=== PATIENT | female | born 1950 | race Caucasian/White ===

== ENCOUNTER 2018-06-10 16:06 | Inpatient (IN) ==
[2018-06-10] MEDS ORDERED: Metoclopramide Inj 10 MG in Sodium Chlor 0.9% Inj 50 ML IV.SIG ONE (16:52)
--- NOTE | 2018-06-10 16:54 | ED ---
HPI General Chief complaint: Headache Stated complaint: Neuro Time Seen by Provider: 06/10/18 16:40 Source: patient Mode of arrival: ambulatory Limitations: no limitations History of Present Illness HPI narrative: 68yo F with PMH of HTN, TIA here with c/o frontal headache that has been there for about 5 days but said it felt worst today. Headache was gradual onset and associated with nausea. Said she gets frequent headaches and this feels like her usual headaches but more severe. Pt also said that last night she had difficulty articulating words that she was thinking and some slurred speech. Said she woke up this morning and still had some slurred speech and some difficulty articulating words but it resolved by around 9am. Said she is back to her baseline speech and has no difficulty stating her words now. Denies any trauma, fever, neck pain, visual changes, chest pain, sob, vomiting, abdominal pain, focal weakness or numbness. Related Data Home Medications Medication Instructions Recorded Confirmed amlodipine 10 mg PO DAILY 06/10/18 06/10/18 Allergies Allergy/AdvReac Type Severity Reaction Status Date / Time No Known Allergies Allergy Verified 06/10/18 16:28 Review of Systems ROS: all other systems reviewed are negative [facility] Medical History Medical History HTN (hypertension) (Acute) Surgical History Surgical History H/O section (Acute) S/P appy (Acute) Social History Social History Substance History: No History of Abuse Second Hand Smoke Exposure: No Smoking Status: Never smoker How Often Do You Have a Drink Containing Alcohol: Never Recent Travel in [facility] within the Last 8 Weeks: No Recent Out of Country Travel within the Last 8 Weeks: No Immunization History Tetanus Immunization: <5 Years Exam Narrative Exam Narrative: GENERAL: 68yo F in mild distress. SKIN: Focused skin assessment warm/dry. HEAD: Atraumatic. Normocephalic. EYES: Pupils equal and round at 3mm bilaterally. EOMI. ENT: No nasal bleeding or discharge. Mucous membranes pink and moist. NECK: No nuchal rigidity. CARDIOVASCULAR: Regular rate and rhythm. No murmur appreciated. RESPIRATORY: No accessory muscle use. Clear to auscultation. Breath sounds equal bilaterally. GASTROINTESTINAL: Abdomen soft, non-tender, nondistended. MUSCULOSKELETAL: No obvious deformities. No clubbing. No cyanosis. No edema. NEUROLOGICAL: Awake and alert. No obvious cranial nerve deficits. Motor grossly within normal limits in all extremities. Sensation intact. Normal speech. NIH stroke scale 0. PSYCHIATRIC: Appropriate mood and affect; insight and judgment normal. Course Initial Documented Vital Signs Temperature 98.5 F 06/10/18 16:12 Pulse Rate 105 H 06/10/18 16:12 Respiratory Rate 20 06/10/18 16:12 Blood Pressure 166/86 H 06/10/18 16:12 Pulse Oximetry 96 06/10/18 16:12 Last Documented Vital Signs Temperature 98.3 F 06/10/18 19:56 Pulse Rate 82 06/10/18 19:56 Respiratory Rate 16 06/10/18 19:56 Blood Pressure 165/80 H 06/10/18 19:56 Pulse Oximetry 96 06/10/18 18:06 Medical Decision Making MDM Narrative Medical decision making narrative: 68yo F with c/o headache for a few days. However, pt states she had difficulty stating his words and slurred speech last night. Said it resolved this morning around 9am. NIH stroke scale 0 now. Pt could have had a complex migraine but cannot rule out TIA in the ED. Labs reviewed, no leukocytosis. H/H normal. BUN mildly elevated at 21. Pt given NS IVF. Pt given reglan and said headache and nausea had improved. CT brain showed no hemorrhage or acute infarction. There is benign expansile lesion in left occipital and temporal bones. Brain MRI on an outpatient basis would be helpful to evaluate the diploic space. Pt will be admitted for observation for possible TIA so will be getting an MRI brain. Pt given aspirin. Discussed with Dr. Morse and accepted to her service. Medical Screen Exam Complete: Yes Emergency Medical Condition: Yes Differential Diagnosis Differential Diagnosis: Migraine headache vs. complex migraine vs. TIA Lab Data Result diagrams: 06/10/18 16:55 06/10/18 16:55 Lab Results 06/10/18 06/10/18 06/10/18 Range/Units 16:55 16:55 16:55 CBC w Diff Auto diff final WBC 7.9 (4.0-11.0) th/mm3 RBC 4.70 (4.00-5.30) mil/mm3 Hgb 14.1 (11.6-15.3) gm/dL Hct 41.7 (35.0-46.0) % MCV 88.7 (80.0-100.0) fL MCH 30.1 (27.0-34.0) pg MCHC 33.9 (32.0-36.0) % RDW 13.6 (11.6-17.2) % Plt Count 299 (150-450) th/mm3 MPV 9.4 (7.0-11.0) fL Neut % (Auto) 72.7 H (16.0-70.0) % Lymph % (Auto) 18.0 (9.0-44.0) % [place] % (Auto) 7.2 (0.0-8.0) % Eos % (Auto) 1.3 (0.0-4.0) % Baso % (Auto) 0.8 (0.0-2.0) % Neut # (Auto) 5.7 (1.8-7.7) th/mm3 Lymph # (Auto) 1.4 (1.0-4.8) th/mm3 [place] # (Auto) 0.6 (0.0-0.9) th/mm3 Eos # (Auto) 0.1 (0.0-0.4) th/mm3 Baso # (Auto) 0.1 (0.0-0.2) th/mm3 WBC Differential . Differential Comment . PT 10.4 (9.8-11.6) sec INR 1.0 Ratio APTT 25.0 (24.3-30.1) sec Sodium 139 (136-145) meq/L Potassium 3.9 (3.5-5.1) meq/L Chloride 106 (98-107) meq/L Carbon Dioxide 29.2 (21.0-32.0) meq/L Anion Gap 4 L (5-15) meq/L BUN 21 H (7-18) mg/dL Creatinine 0.97 (0.50-1.00) mg/dL Estimated GFR 57 L (>89) mL/min Random Glucose 176 H (74-106) mg/dL Calcium 8.4 L (8.5-10.1) mg/dL Imaging Data Radiologist's impression: Head CT 06/10/18 16:52 CONCLUSION: 1. Benign expansile lesion involving the left occipital and left temporal bones. Brain MRI on an outpatient basis would be helpful to evaluate the diploic space. The intracranial exam itself is unremarkable . Discharge Plan Discharge Disposition Patient Disposition: 30 Still Patient Discharge Details Diagnosis: TIA (transient ischemic attack) Physicians Team ED Provider: Digna Bangura Primary Care Provider: UNKNOWN, Attending Provider: Jeny Morse Status ED Status: Left Department Discharge Information Discharge Date/Time: 06/10/18 19:57
[2018-06-10 17:00] LABS: Baso # (Auto) 0.1 th/mm3 (0.0-0.2); Baso % (Auto) 0.8 % (0.0-2.0); Eos # (Auto) 0.1 th/mm3 (0.0-0.4); Eos % (Auto) 1.3 % (0.0-4.0); Hematocrit 41.7 % (35.0-46.0); Hemoglobin 14.1 gm/dL (11.6-15.3); Lymph # (Auto) 1.4 th/mm3 (1.0-4.8); Mean Corpuscular HGB Conc 33.9 % (32.0-36.0); Mean Corpuscular Hemoglobin 30.1 pg (27.0-34.0); Mean Corpuscular Volume 88.7 fL (80.0-100.0); Mean Platelet Volume 9.4 fL (7.0-11.0); Mono # (Auto) 0.6 th/mm3 (0.0-0.9); Mono % (Auto) 7.2 % (0.0-8.0); Neut # (Auto) 5.7 th/mm3 (1.8-7.7); Neut % (Auto) 72.7 % (16.0-70.0); Platelet Count 299 th/mm3 (150-450); Red Cell Distribution Width 13.6 % (11.6-17.2); White Blood Count 7.9 th/mm3 (4.0-11.0)
[2018-06-10 17:14] LABS: Potassium 3.9 meq/L (3.5-5.1)
[2018-06-10 17:16] LABS: Calcium 8.4 mg/dL (8.5-10.1)
[2018-06-10 17:17] LABS: Carbon Dioxide 29.2 meq/L (21.0-32.0)
[2018-06-10 17:37] LABS: Prothrombin Time 10.4 sec (9.8-11.6)
--- NOTE | 2018-06-10 17:37 | CT ---
EXAM DATE: 06/10/2018 5:22 PM EDT AGE/SEX: 68 years / Female INDICATIONS: Headache and hypertension. Difficulty speaking yesterday. CLINICAL DATA: This is the patient's initial encounter. Patient reports that signs and symptoms have been present for 2 days and indicates a pain score of 0/10. MEDICAL/SURGICAL HISTORY: Hypertension. section. Appendectomy. RADIATION DOSE: 58.57 CTDI (mGy) COMPARISON: No prior exams available for comparison. TECHNIQUE: CT of the head without contrast. Using automated exposure control and adjustment of the mA and/or kV according to patient size, radiation dose was kept as low as reasonably achievable to ob tain optimal diagnostic quality images. DICOM format image data is available electronically for revi ew and comparison. FINDINGS: Cerebrum: The ventricles are normal for age. No evidence of midline shift, mass lesion, hemorrhage or acute infarction. No extraaxial fluid collections are seen. Posterior Fossa: The cerebellum and brainstem are intact. The 4th ventricle is midline. The cerebe llopontine angle is unremarkable. Extracranial: The visualized portion of the orbits is intact. Skull: There is a large mixed density lesion within the left occiput extending into the temporal bon e. The bone is expanded with some areas of ossification. It is a solitary abnormality. It is slow-fadumo wing process with expansion of the diploic space measuring up to 2.4 cm across, the contralateral mitul e is 0.5 cm No evidence of skull fracture. CONCLUSION: 1. Benign expansile lesion involving the left occipital and left temporal bones. Brain MRI on an out patient basis would be helpful to evaluate the diploic space. The intracranial exam itself is unremar kable . Electronically signed by: Lamont Levin MD 06/10/2018 5:36 PM EDT
[2018-06-10] MEDS ORDERED: Aspirin 325 MG Tablet PO ONE (17:53)
[2018-06-10] MEDS ORDERED: Sodium Chlor 0.9% Inj 500 ML IV.SIG SCH (18:00)
[2018-06-10] MEDS ORDERED: Insulin NovoLOG Aspart Correctional Sugar Inj SQ PRN (18:29)
[2018-06-10] MEDS ORDERED: Dextrose 50% in Water 50 ML Vial IV.PUSH PRN (18:29)
[2018-06-10] MEDS: Sod Chloride 0.9% Inj 1,000 ML IV.CONT SCH (18:55)
[2018-06-10] MEDS: Acetaminophen 325 MG Tablet PO PRN (22:05)
[2018-06-11] MEDS ORDERED: amLODIPine 10 MG Tablet PO SCH (09:00)
[2018-06-11] MEDS ORDERED: Gadobutrol PF 10 MMOL/10 ML Vial (for RAD) IV.SIG ONE (09:00)
[2018-06-11] MEDS: Sod Chloride 0.9% Inj 1,000 ML IV.CONT SCH (09:10)
--- NOTE | 2018-06-11 09:32 | MR ---
EXAM DATE: 06/11/2018 8:59 AM EDT AGE/SEX: 68 years / Female INDICATIONS: TIA. Lesion on skull, headaches for a few weeks. CLINICAL DATA: This is the patient's initial encounter. Patient reports that signs and symptoms have been present for 2 weeks and indicates a pain score of 8/10. MEDICAL/SURGICAL HISTORY: Hypertension. section. Appendectomy. Tonsillectomy. COMPARISON: [facility], MR HEAD W & W/O CONTRAST, 06/11/2018. . TECHNIQUE: 3D [id number] MRA was performed. Source images, multiplanar STS MIP, and 3D volum e MIP reconstructions were reviewed. FINDINGS: There is excellent visualization of the major intracranial arteries out to the second-order branch ve ssels. There is no evidence for aneurysm, vessel truncation or stenosis, and no evidence for vascula r malformation. CONCLUSION: 1. Negative MRA Cow ([place]) non contrast. Electronically signed by: Sarthak Burch MD 06/11/2018 9:31 AM EDT
[2018-06-11 09:46] VITALS: RESP 20
--- NOTE | 2018-06-11 09:49 | MR ---
EXAM DATE: 06/11/2018 8:54 AM EDT AGE/SEX: 68 years / Female INDICATIONS: TIA. Patient prior to headaches and difficulty speaking. Patient has hypertension. A bnormal head CT with expansile lesion on skull, headaches for a few weeks in frontal left side of hea d. CLINICAL DATA: This is the patient's initial encounter. Patient reports that signs and symptoms have been present for 2 weeks and indicates a pain score of 9/10. MEDICAL/SURGICAL HISTORY: Hypertension. section. Appendectomy. Tonsillectomy. COMPARISON: [facility], CT HEAD W/O CONTRAST, 06/10/2018. . TECHNIQUE: Multiplanar, multisequence examination of the brain was performed without and with 9 ml Ga davist (gadobutrol) contrast as a single exam dose. FINDINGS: Cerebrum: The ventricles are normal for age. No evidence of midline shift, mass lesion, hemorrhage or acute infarction. No extraaxial fluid collections are seen. The pituitary gland and suprasellar cistern are normal in configuration. White Matter: No significant signal abnormalities are seen in the white matter. Posterior Fossa: The cerebellum and brainstem are intact. The 4th ventricle is midline. The cerebel lopontine angle is unremarkable. The cerebellar tonsils are normal in position. Diffusion Imaging: On the echoplanar images there is a single tiny focus of restricted diffusion in the left parietal lobe. Extracranial: The visualized portions of the orbits and paranasal sinuses are unremarkable. Is an ex pansile lesion again noted involving the left occipital and temporal bones with patchy internal signa l. There are patchy areas of enhancement after gadolinium administration. There is no extraosseous so ft tissue component. Post Contrast: No abnormal areas of parenchymal or dural enhancement. No evidence of blood-brain ba rrier breakdown. CONCLUSION: 1. Single small focus of restricted diffusion in the left parietal lobe consistent with an acute to subacute small lacunar type infarct. 2. Expansile lesion again noted involving the left occipital and temporal bones with patchy internal signal and enhancement. The finding is nonspecific. The differential diagnosis includes Paget's dise ase and fibrous dysplasia. Electronically signed by: Hesham Caballero MD 06/11/2018 9:47 AM EDT
[2018-06-11] MEDS ORDERED: Dextrose 50% in Water 50 ML Vial IV.PUSH PRN (10:07)
--- NOTE | 2018-06-11 10:16 | P.HP ---
History of Present Illness Primary Care Physician: UNKNOWN Chief Complaint: Headache History of Present Illness: This is a 68-year-old female with a history of hypertension and TIA. She presents to the emergency department because of headache. She describes a constant throbbing left-sided headache for the past 7-10 days temporarily relieved with ibuprofen. The night prior to presentation, she complained of difficulty articulating words but no slurred speech, fever, chills, dizziness, swallowing difficulties, numbness and focal weakness. Today she feels much better and wants to go home however MRI shows left parietal lobe acute to subacute small lacunar infarct. Patient has been started on aspirin. All other systems reviewed negative Review of Systems All other systems reviewed negative except as stated in HPI PMFSH - History History Provided By: Patient - Medical History Medical History: Medical History (Last Reviewed 06/11/18 @ 10:11 by Boy Clark MD) HTN (hypertension) - Surgical History Surgical History: Surgical History (Last Reviewed 06/11/18 @ 10:11 by Boy Clark MD) H/O section S/P appy - Family History Family History: Family History (Last Updated 06/11/18 @ 10:11 by Boy Clark MD) Other Family history non-contributory - Social History I have reviewed the patient's Social History: Yes - Tobacco History Second Hand Smoke Exposure: No Smoking Status: Never smoker - Alcohol History How Often Do You Have a Drink Containing Alcohol: Never - Substance Use History Substance History: No History of Abuse - Travel History Recent Travel in the [place] Within the Last 8 Weeks: No Recent Travel Out of the Country Within the Last 8 Weeks: No - Immunization History Tetanus Immunization: <5 Years Medications and Allergies Active Medications: Active Medications Acetaminophen (Tylenol) 650 mg PO Q4H PRN PRN Reason: HEADACHE OR TEMP > 101 F Last Admin: 06/10/18 22:05 Dose: 650 mg Amlodipine Besylate (Norvasc) 10 mg PO DAILY [facility] Last Admin: 06/11/18 09:10 Dose: 10 mg Aspirin (Aspirin Chew) 81 mg PO DAILY [facility] Last Admin: 06/11/18 09:10 Dose: 81 mg Dextrose (D50w Vial) 50 ml IV.PUSH UNSCH PRN PRN Reason: per Hypoglycemic Protocol Dextrose (D50w Vial) 50 ml IV.PUSH UNSCH PRN PRN Reason: PER HYPOGLYCEMIA PROTOCOL Enalaprilat (Vasotec Inj) 1.25 mg IV.PUSH Q4H PRN PRN Reason: For SBP > 220 or DBP > 120 Glucagon (Glucagon Inj) 1 mg OTHER UNSCH PRN PRN Reason: per Hypoglycemic Protocol Glucagon (Glucagon Inj) 1 mg OTHER UNSCH PRN PRN Reason: for Hypoglycemia Protocol Sodium Chloride (Ns Inj) 500 mls @ 0 mls/hr IV.SIG BOLUS BANDAR Last Infusion: 06/10/18 18:54 Dose: Infused Sodium Chloride (Ns Inj) 1,000 mls @ 70 mls/hr IV.CONT .[id number] BANDAR Last Admin: 06/11/18 09:10 Dose: Not Given Insulin Aspart (Novolog Insulin [place] Sugar Inj) 0 unit SQ ACHS PRN; Protocol PRN Reason: Per Protocol Sodium Chloride (Ns Flush) 2 ml IV.FLUSH BID BANDAR Sodium Chloride (Ns Flush) 2 ml IV.FLUSH PRN PRN PRN Reason: FLUSH AFTER USING IV ACCESS Allergies Allergy/AdvReac Type Severity Reaction Status Date / Time No Known Allergies Allergy Verified 06/10/18 16:28 Home Medications Medication Instructions Recorded Confirmed Type amlodipine 10 mg PO DAILY 06/10/18 06/10/18 History Exam Vital signs: Vital Signs 06/10/18 16:12 06/10/18 16:27 06/10/18 17:08 Temperature 98.5 F Pulse Rate 105 H 96 H 90 Respiratory Rate 20 16 16 Blood Pressure 166/86 H 163/78 H 143/80 H Pulse Oximetry 96 97 97 06/10/18 18:06 06/10/18 19:56 06/10/18 20:00 Temperature 98.3 F 98.9 F Pulse Rate 88 82 89 Respiratory Rate 16 16 18 Blood Pressure 169/84 H 165/80 H 171/89 H Pulse Oximetry 96 97 06/10/18 20:45 06/10/18 22:00 06/11/18 00:00 Temperature 97.5 F L Pulse Rate 87 89 62 Respiratory Rate 18 Blood Pressure 153/79 H Pulse Oximetry 96 06/11/18 04:00 06/11/18 08:00 Temperature 97.2 F L 97 F L Pulse Rate 76 78 Respiratory Rate 18 20 Blood Pressure 130/88 171/87 H Pulse Oximetry 97 96 Intake & Output 06/10/18 06/11/1806/11/18 18:59 06:59 18:59 Intake Total 552 / 552 440 / 440 Balance 552 / 552 440 / 440 Weight 95 kg 94.3 kg Intake: IV 552 / 552 Reglan Inj 10 MG In NS Inj 50 52 / 52 ML @ 104 mls/hr IV.SIG ONCE ONE Rx#:[id number] NS Inj 500 ML @ Wide Open IV. 500 / 500 SIG BOLUS BANDAR Rx#:[id number] Oral 440 / 440 Other: # Voids 2 Date of Last Bowel Movement 06/10/18 Weight On Admission 94.3 kg Narrative: GENERAL: Well-developed, well-nourished in no distress SKIN: Warm and dry. HEAD: Atraumatic. Normocephalic. EYES: Pupils equal and round. No scleral icterus. No injection or drainage. ENT: No nasal bleeding or discharge. Mucous membranes pink and moist. NECK: Trachea midline. No JVD. CARDIOVASCULAR: Regular rate and rhythm. RESPIRATORY: No accessory muscle use. Clear to auscultation. Breath sounds equal bilaterally. GASTROINTESTINAL: Abdomen soft, non-tender, nondistended. MUSCULOSKELETAL: Extremities without clubbing, cyanosis, or edema. No obvious deformities. NEUROLOGICAL: Awake and alert. No obvious cranial nerve deficits. Motor grossly within normal limits. Five out of 5 muscle strength in the arms and legs. Normal speech. PSYCHIATRIC: Appropriate mood and affect; insight and judgment normal. Results - Labs CBC & Chem 7: 06/10/18 16:55 06/10/18 16:55 Labs: Laboratory Results - last 24 hr 06/10/18 06/10/18 06/10/18 16:55 16:55 16:55 CBC w Diff Auto diff final WBC 7.9 RBC 4.70 Hgb 14.1 Hct 41.7 MCV 88.7 MCH 30.1 MCHC 33.9 RDW 13.6 Plt Count 299 MPV 9.4 Neut % (Auto) 72.7 H Lymph % (Auto) 18.0 [place] % (Auto) 7.2 Eos % (Auto) 1.3 Baso % (Auto) 0.8 Neut # (Auto) 5.7 Lymph # (Auto) 1.4 [place] # (Auto) 0.6 Eos # (Auto) 0.1 Baso # (Auto) 0.1 WBC Differential . Differential Comment . PT 10.4 INR 1.0 APTT 25.0 Sodium 139 Potassium 3.9 Chloride 106 Carbon Dioxide 29.2 Anion Gap 4 L BUN 21 H Creatinine 0.97 Estimated GFR 57 L POC Glucose Random Glucose 176 H Calcium 8.4 L 06/10/18 21:15 CBC w Diff WBC RBC Hgb Hct MCV MCH MCHC RDW Plt Count MPV Neut % (Auto) Lymph % (Auto) [place] % (Auto) Eos % (Auto) Baso % (Auto) Neut # (Auto) Lymph # (Auto) [place] # (Auto) Eos # (Auto) Baso # (Auto) WBC Differential Differential Comment PT INR APTT Sodium Potassium Chloride Carbon Dioxide Anion Gap BUN Creatinine Estimated GFR POC Glucose 115 H Random Glucose Calcium - Imaging Impressions Head CT 06/10/18 16:52 CONCLUSION: 1. Benign expansile lesion involving the left occipital and left temporal bones. Brain MRI on an outpatient basis would be helpful to evaluate the diploic space. The intracranial exam itself is unremarkable . Head MRI 06/11/18 00:00 CONCLUSION: 1. Single small focus of restricted diffusion in the left parietal lobe consistent with an acute to subacute small lacunar type infarct. 2. Expansile lesion again noted involving the left occipital and temporal bones with patchy internal signal and enhancement. The finding is nonspecific. The differential diagnosis includes Paget's disease and fibrous dysplasia. Head MRA 06/11/18 07:06 CONCLUSION: 1. Negative MRA [place] ([place] [facility] [place]) non contrast. Caprini VTE Risk Assessment Caprini VTE Risk Assessment: Moderate/High Risk (score >= 2) Caprini Risk Assessment Model: Point Value = 1 Point Value = 2 Point Value = 3 Point Value = 5 Age 41-60 Minor surgery BMI > 25 kg/m2 Swollen legs Varicose veins or History of unexplained or recurrent spontaneous Oral contraceptives or hormone replacement Sepsis (< 1 month) Serious lung disease, including pneumonia (< 1 month) Abnormal pulmonary function Acute myocardial infarction Congestive heart failure (< 1 month) History of inflammatory bowel disease Medical patient at bed rest Age 61-74 Arthroscopic surgery Major open surgery (> 45 min) Laparoscopic surgery (> 45 min) Malignancy Confined to bed (> 72 hours) Immobilizing plaster cast Central venous access Age >= 75 History of VTE Family history of VTE Factor V Leiden Prothrombin [id number] Lupus anticoagulant Anticardiolipin antibodies Elevated serum homocysteine Heparin-induced thrombocytopenia Other congenital or acquired thrombophilia Stroke (< 1 month) Elective arthroplasty Hip, pelvis, or leg fracture Acute spinal cord injury (< 1 month) Prophylaxis Regimen: Total Risk Factor Score Risk Level Prophylaxis Regimen 0-1 Low Early ambulation 2 Moderate Order ONE of the following: *Sequential Compression Device (SCD) *Heparin 5000 units SQ BID 3-4 Higher Order ONE of the following medications: *Heparin 5000 units SQ TID *Enoxaparin/Lovenox 40 mg SQ daily (WT < 150 kg, CrCl > 30 mL/min) *Enoxaparin/Lovenox 30 mg SQ daily (WT < 150 kg, CrCl > 10-29 mL/min) *Enoxaparin/Lovenox 30 mg SQ BID (WT < 150 kg, CrCl > 30 mL/min) AND/OR *Sequential Compression Device (SCD) 5 or more Highest Order ONE of the following medications: *Heparin 5000 units SQ TID (Preferred with Epidurals) *Enoxaparin/Lovenox 40 mg SQ daily (WT < 150 kg, CrCl > 30 mL/min) *Enoxaparin/Lovenox 30 mg SQ daily (WT < 150 kg, CrCl > 10-29 mL/min) *Enoxaparin/Lovenox 30 mg SQ BID (WT < 150 kg, CrCl > 30 mL/min) AND *Sequential Compression Device (SCD) Assessment and Plan - Plan This is a 68-year-old female with a history of hypertension and TIA. She presents to the emergency department because of headache associated with difficulty articulating words but no slurred speech, fever, chills, dizziness, swallowing difficulties, numbness and focal weakness. MRI shows left parietal lobe acute to subacute small lacunar infarct. Acute left parietal lobe lacunar infarct. She is neurologically stable at this time. Continue aspirin, permissive hypertension with IV fluids and holding home BP medicine Norvasc and stroke workup which will include echocardiogram and carotid ultrasound. Telemetry shows sinus rhythm. Obtain EKG. Risk factor modifications follow-up pending A1c and lipid profile. Consult PT, ST and neurology. Expansile lesion again noted involving the left occipital and temporal bones with patchy internal signal and enhancement. The finding is nonspecific. The differential diagnosis includes Paget's disease and fibrous dysplasia. Outpatient follow-up DVT prophylaxis with SCD and early ambulation Discharge Planning: Need stroke workup pending echocardiogram carotid, carotid ultrasound and neurology consultation.
[2018-06-11 10:18] LABS: Chol/HDL Ratio 3.78 Ratio; HDL Cholesterol 57.3 mg/dL (40.0-60.0)
--- NOTE | 2018-06-11 10:23 | US ---
EXAM DATE: 06/11/2018 10:18 AM EDT AGE/SEX: 68 years / Female INDICATIONS: Headache and difficulty speaking. Abnormal MRI demonstrating small acute to subacute lac unar type infarct. CLINICAL DATA: This is the patient's initial encounter. Patient reports that signs and symptoms have been present for 1 day and indicates a pain score of 0/10. MEDICAL/SURGICAL HISTORY: Hypertension. section. Appendectomy. COMPARISON: No prior exams available for comparison. VELOCITY PARAMETERS: ICA/CCA Ratio: Right 0.9 , Left 1.0 ICA: Right 74 cm/sec, Left 103 cm/sec CCA: Right 82 cm/sec, Left 103 cm/sec ECA: Right 50 cm/sec, Left 63 cm/sec Vertebral: Right 50 cm/sec antegrade, Left 54 cm/sec antegrade FINDINGS: Right Carotid: Mild arteriosclerotic plaque is visualized.The waveforms are within normal limits. Left Carotid: Mild arteriosclerotic plaque is visualized. The waveforms are within normal limits. Other: None. CONCLUSION: 1. Right Internal Carotid Artery: Mild plaque with no evidence of stenosis. 2. Left Internal Carotid Artery: Mild plaque with no evidence of stenosis. Electronically signed by: Hesham Caballero MD 06/11/2018 10:22 AM EDT
--- NOTE | 2018-06-11 13:25 | ECHRPT ---
Indication: CVA/TIA CONCLUSIONS Normal left ventricular size. Wall thickness is measured at the upper limits of normal. No definite regional wall motion abnormalities are present. A false tendon is evident in the left ve ntricle. The left ventricular systolic function is low normal with an estimated ejection fraction of 50%. Trace mitral valve regurgitation. There is trace tricuspid valve regurgitation. The estimated pulmonary arterial pressure is 22 mmHg. BP: / HR: Rhythm: MEASUREMENTS (Male / Female) Normal Values Technical Quality:Technically difficult study 2D ECHO LV Diastolic Diameter PLAX 5.0 cm 4.2 - 5.9 / 3.9 - 5.3 cm LV Systolic Diameter PLAX 3.0 cm IVS Diastolic Thickness 1.1 cm 0.6 - 1.0 / 0.6 - 0.9 cm LVPW Diastolic Thickness 1.1 cm 0.6 - 1.0 / 0.6 - 0.9 cm LV Relative Wall Thickness 0.4 RV Internal Dim ED PLAX 2.2 cm LVOT Diameter 2.1 cm Aortic Root Diameter 2.7 cm LA Systolic Diameter LX 3.6 cm 3.0 - 4.0 / 2.7 - 3.8 cm M-MODE AV Cusp Separation MM 1.9 cm DOPPLER AV Peak Velocity 171.0 cm/s AV Peak Gradient 11.7 mmHg LVOT Peak Velocity 129.0 cm/s LVOT Peak Gradient 6.7 mmHg AV Area Cont Eq pk 2.6 cm Mitral E Point Velocity 70.1 cm/s Mitral A Point Velocity 99.2 cm/s Mitral E to A Ratio 0.7 LV E' Lateral Velocity 6.9 cm/s Mitral E to LV E' Lateral Ratio 10.1 LV E' Septal Velocity 5.2 cm/s Mitral E to LV E' Septal Ratio 13.6 TR Peak Velocity 208.0 cm/s TR Peak Gradient 17.3 mmHg Right Atrial Pressure 5.0 mmHg Pulmonary Artery Systolic Pressu 22.3 mmHg Right Ventricular Systolic Press 22.3 mmHg PV Peak Velocity 93.7 cm/s PV Peak Gradient 3.5 mmHg FINDINGS LEFT VENTRICLE Normal left ventricular size. Wall thickness is measured at the upper limits of normal. No definite regional wall motion abnormalities are present. A false tendon is evident in the left ve ntricle. The left ventricular systolic function is low normal with an estimated ejection fraction of 50%. RIGHT VENTRICLE Normal right ventricular size and systolic function. LEFT ATRIUM The left atrial size is normal. RIGHT ATRIUM The right atrial size is normal. ATRIAL SEPTUM Normal atrial septal thickness without atrial level shunting by limited color doppler interrogation. AORTA The aortic root and proximal ascending aorta are normal in size on limited imaging. MITRAL VALVE Trace mitral valve regurgitation. AORTIC VALVE Trileaflet aortic valve. No aortic valve stenosis or regurgitation. TRICUSPID VALVE There is trace tricuspid valve regurgitation. The estimated pulmonary arterial pressure is 22 mmHg. PULMONARY VALVE No pulmonary valve regurgitation or stenosis. VESSELS The inferior vena cava is normal in size. PERICARDIUM No pericardial effusion. Sterling Henderson MD (Electronically Signed) Final Date:11 June 2018 13:24
[2018-06-11 17:36] LABS: Hemoglobin A1c 5.6 % (4.3-6.0)
[2018-06-11] MEDS: Acetaminophen 325 MG Tablet PO PRN (18:08)
--- NOTE | 2018-06-11 20:03 | MB ---
cc: Sam Remy MD, PhD DATE: 06/11/2018 REASON FOR CONSULTATION: Rule out TIA. HISTORY OF PRESENT ILLNESS: The patient is a very nice 68-year-old woman who has had a severe pounding headache for the past 2 weeks, severe in nature. On Saturday, she developed difficulty with her speech with trouble getting words out, which resolved after a period of time. She feels back to her baseline state. The headache has resolved. She had no focal weakness or numbness. No prior history of migraine headaches. PAST MEDICAL HISTORY: Hypertension. CURRENT MEDICATIONS: She was started on aspirin in the ER at 81 mg daily. She is on Norvasc 10 mg daily, Tylenol p.r.n. NEUROLOGICAL EXAMINATION: VITAL SIGNS: Blood pressure 177/81, pulse 81, respirations 20, temperature 96.7 degrees. HIGHER CORTICAL FUNCTION: Normal, including speech. CRANIAL NERVES: Intact. MOTOR: Normal strength and tone of all groups. There is no drift. Fine motor skills are normal. REFLEXES: Symmetric. IMAGING STUDIES: CT brain, benign expansile lesion involving the left occipital and left temporal bones. Recommend brain MRI. Intracranially normal. MRI brain, single focus of restricted diffusion in the left parietal lobe consistent with acute to subacute stroke. Expansile lesion again noted involving the left occipital and temporal bones, nonspecific finding. Differential includes Paget disease, fibrous dysplasia. MRA of the brain is negative. Carotid ultrasound, no evidence of any significant carotid stenosis is identified. Echocardiogram, EF 50%, left atrial size normal, right atrial size normal, normal right ventricular size and function, left ventricle normal ventricular size but wall thickness is upper limits of normal. No vegetations identified. No thrombus is seen. Atrial septal thickness is normal. LABORATORY DATA: White count 7900, hemoglobin 14.1, hematocrit 41.7%, platelet count 299,000. PT 10.4, INR 1, aPTT 25. Sodium 139, potassium 3.9, chloride 106, CO2 of 29, BUN 21, creatinine 0.97, GFR 57, glucose 105. Cholesterol 217, LDL 148. IMPRESSION: Small lacunar stroke, left parietal area. RECOMMENDATIONS: Continue aspirin. We will increase the dose to 325 mg daily. We will also add a statin because of the elevated LDL. Monitor cardiac telemetry to rule out atrial fibrillation. After discharge, would recommend a cardiology evaluation to see if she would be a candidate for a long-term patient monitor to rule out atrial fibrillation. Sam Remy MD, PhD BROOK/moreno , 07:36 PM , 07:42 PM
[2018-06-12] MEDS: Sod Chloride 0.9% Inj 1,000 ML IV.CONT SCH (00:13)
[2018-06-12 05:33] VITALS: BP 139/63; TEMP 97.1; O2SAT 93
--- NOTE | 2018-06-12 08:36 | P.PN ---
Subjective Interval history: Follow-up CVA. Patient is asymptomatic she is doing good and wants to go home. Telemetry shows sinus rhythm. Neurology recommendations reviewed Physical Exam Vital signs: Vital Signs 06/11/18 11:56 06/11/18 15:41 06/11/18 20:00 Temperature 97.3 F L 96.7 F L 97.4 F L Pulse Rate 69 81 71 Respiratory Rate 20 20 20 Blood Pressure 178/88 H 177/81 H 177/75 H Pulse Oximetry 96 97 95 06/12/18 00:00 06/12/18 00:05 06/12/18 04:00 Temperature 97.2 F L 97.1 F L Pulse Rate 73 59 L 76 Respiratory Rate 20 20 Blood Pressure 146/79 H 139/63 Pulse Oximetry 95 93 L Intake & Output 06/11/18 06/12/18 06/12/18 18:59 06:59 18:59 Intake Total 360 / 360 720 / 720 Balance 360 / 360 720 / 720 Weight 94.3 kg Intake: Oral 360 / 360 720 / 720 Other: # Voids 4 2 Date of Last Bowel Movement 06/10/18 Narrative: GENERAL: Well-developed, well-nourished in no distress SKIN: Warm and dry. CARDIOVASCULAR: Regular rate and rhythm. RESPIRATORY: No accessory muscle use. Clear to auscultation. Breath sounds equal bilaterally. GASTROINTESTINAL: Abdomen soft, non-tender, nondistended. MUSCULOSKELETAL: Extremities without clubbing, cyanosis, or edema. No obvious deformities. NEUROLOGICAL: Awake and alert. No obvious cranial nerve deficits. Motor grossly within normal limits. Five out of 5 muscle strength in the arms and legs. Normal speech. PSYCHIATRIC: Appropriate mood and affect; insight and judgment normal. Results - Labs CBC & Chem 7: 06/10/18 16:55 06/10/18 16:55 Laboratory Results - last 24 hr 06/11/18 06/11/18 06/11/18 06:47 06:47 18:06 POC Glucose 83 Hemoglobin A1c 5.6 Triglycerides 61 Cholesterol 217 H LDL Cholesterol, Calc 148 H HDL Cholesterol 57.3 Cholesterol/HDL Ratio 3.78 06/11/18 06/12/18 20:42 07:45 POC Glucose 156 H 85 Hemoglobin A1c Triglycerides Cholesterol LDL Cholesterol, Calc HDL Cholesterol Cholesterol/HDL Ratio - Imaging Impressions Carotid Doppler Study 06/11/18 00:00 CONCLUSION: 1. Right Internal Carotid Artery: Mild plaque with no evidence of stenosis. 2. Left Internal Carotid Artery: Mild plaque with no evidence of stenosis. Head MRI 06/11/18 00:00 CONCLUSION: 1. Single small focus of restricted diffusion in the left parietal lobe consistent with an acute to subacute small lacunar type infarct. 2. Expansile lesion again noted involving the left occipital and temporal bones with patchy internal signal and enhancement. The finding is nonspecific. The differential diagnosis includes Paget's disease and fibrous dysplasia. Head MRA 06/11/18 07:06 CONCLUSION: 1. Negative MRA [place] ([place]) non contrast. - Procedures none Assessment and Plan - Plan This is a 68-year-old female with a history of hypertension and TIA. She presents to the emergency department because of headache associated with difficulty articulating words but no slurred speech, fever, chills, dizziness, swallowing difficulties, numbness and focal weakness. MRI shows left parietal lobe acute to subacute small lacunar infarct. Acute left parietal lobe lacunar infarct. She is neurologically stable at this time. Echocardiogram without clots. Carotid ultrasound with no significant stenosis. Continue aspirin. Risk factor modification A1c 5.6 LDL 143 started on Lipitor. Telemetry shows sinus rhythm as well as EKG. 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 Expansile lesion again noted involving the left occipital and temporal bones with patchy internal signal and enhancement. The finding is nonspecific. The differential diagnosis includes Paget's disease and fibrous dysplasia. Outpatient follow-up DVT prophylaxis with SCD and early ambulation Discharge Planning: Discharge patient to home Condition on discharge: Improved significantly earlier than anticipated Regular Diet as tolerated Ad Romina activity Rx written: Aspirin and Lipitor Follow-up with primary care physician, neurology and cardiology
[2018-06-12 09:05] VITALS: PULSE 67
--- NOTE | 2018-06-12 14:33 | ECG ---
Date Performed: 06/11/2018 Time Performed: 13:19:03 PTAGE: 68 years EKG: Sinus rhythm MINIMAL VOLTAGE CRITERIA FOR LVH, CONSIDER NORMAL VARIANT NONSPECIFIC T-WAVE ABNORMALITY BORDERLINE ECG NO PREVIOUS TRACING DOCTOR: Otoniel Mathis Interpretating Date/Time 06/12/2018 14:27:52
== END 2018-06-12 09:27 | disposition home or self-care (01) ==
LOC: PHED 16:06 → PHEDA 16:06 → PH3 20:00
PROVIDERS: ADMIT Internal Medicine; ATTEND Internal Medicine